=== PATIENT | female | born 1955 | race Caucasian/White ===

== ENCOUNTER → 2018-04-19 | Outpatient (CLI) | payer SELFPAY ==
[~2018-04-19] MED LIST: ALBU90OI6 INH; B-12500 MCG PO; CIPR500 PO; FERR325 PO; FURO20 PO; Hair, Skin & N1 EACH PO; IBUP600 PO; LEVSOD50; LEVSOD88 PO; PROCODE120 PO; SPIR25 PO; WATER PILL
== END | disposition home or self-care (01) ==
LOC: LAB SHORT 07:48 → LAB SRC 07:48
DX: E03.9 Hypothyroidism, unspecified (principal)
CPT/HCPCS: 84443

== ENCOUNTER 2020-05-25 09:47 | Emergency (ER) | payer MEDICARE ==
[~2020-05-25] VITALS: Ht 160 cm; Wt 113.4 kg
== END 2020-05-25 11:20 | disposition home or self-care (01) ==
LOC: ER 09:47
DX: M25.561 Pain in right knee (principal); Z91.010 Allergy to peanuts; Z79.899 Other long term (current) drug therapy
CPT/HCPCS: 73562-RT; 99283-25

== ENCOUNTER 2020-09-12 11:52 | Emergency (ER) | payer MEDICARE ==
[~2020-09-12] VITALS: Ht 160 cm; Wt 115.7 kg
[2020-09-12] MEDS ORDERED: ONDA4ODT MM (12:12)
== END 2020-09-12 12:45 | disposition home or self-care (01) ==
LOC: ER 11:52
DX: U07.1 COVID-19 (principal); Z91.010 Allergy to peanuts; Z79.899 Other long term (current) drug therapy
CPT/HCPCS: 99282

== ENCOUNTER 2022-12-24 10:06 | Observation (INO) | payer MEDICARE ==
[~2022-12-24] VITALS: Ht 165.1 cm; Wt 114.9 kg
[~2022-12-24 10:06] MED LIST changes: +ONDA4ODT MM
[2022-12-24 11:10] LABS: International Normalized Ratio 1.14; Prothrombin Time Results 11.9 Sec (9.7-11.5)
[2022-12-24 11:14] LABS: BASOPHILS ABSOLUTE AUTO 0.01 K/mm3 (0.00-0.23); BASOPHILS PERCENT AUTO 0 % (0-2); EOSINOPHILS ABSOLUTE AUTO 0.08 K/mm3 (0.00-0.68); EOSINOPHILS PERCENT AUTO 2 % (0-6); Hematocrit 35.9 % (33.0-51.0); Hemoglobin 11.7 g/dL (11.5-16.0); IMMATURE GRAN ABSOLUTE AUTO 0.02 K/mm3 (0.00-0.10); IMMATURE GRAN PERCENT AUTO 1 % (0-1); LYMPHOCYTES ABSOLUTE AUTO 0.64 K/mm3 (0.84-5.20); LYMPHOCYTES PERCENT AUTO 19 % (21-46); MONOCYTES ABSOLUTE AUTO 0.26 K/mm3 (0.16-1.47); MONOCYTES PERCENT AUTO 8 % (4-13); Mean Corpuscular HGB 27.1 pg (26.0-34.0); Mean Corpuscular HGB Conc 32.6 g/dL (31.5-36.5); Mean Corpuscular Volume 83 fL (80-100); Mean Platelet Volume 11.3 fL (9.1-12.4); NEUTROPHILS ABSOLUTE AUTO 2.35 K/mm3 (1.96-9.15); NEUTROPHILS PERCENT AUTO 70 % (41-73); Platelet Count 96 K/mm3 (150-400); RDW Coefficient Variation 16.2 % (11.7-14.2); RDW Standard Deviation 48.8 fL (35.1-46.3); Red Blood Cell Count 4.32 M/mm3 (3.80-5.20); White Blood Cell Count 3.36 K/mm3 (4.00-11.30)
[2022-12-24 11:47] LABS: Albumin, Blood 3.3 g/dL (3.4-5.0); Albumin/Globulin Ratio 0.8 (0.8-1.8); Bilirubin, Total 1.2 mg/dL (0.1-1.0); Bun/Creatinine Ratio 14.8 (12.0-20.0); Calcium, Blood 8.5 mg/dL (8.5-10.1); Creatinine, Blood 0.88 mg/dL (0.40-1.00); Globulin, Blood 4.1 g/dL (2.2-4.0); Potassium, Blood 3.7 mmol/L (3.5-5.5); Total Protein, Blood 7.4 g/dL (6.4-8.2)
[2022-12-24] MEDS ORDERED: LEVSOD100 PO (13:47)
[2022-12-24] MEDS ORDERED: POTA8 PO (13:48)
[2022-12-24] MEDS ORDERED: MAGNESIUM OXID500 MG PO (13:48)
[2022-12-24] MEDS ORDERED: TORS10 PO (13:50)
[2022-12-24 15:36] VITALS: BP 120/53
[2022-12-24 15:38] LABS: Hematocrit 34.7 % (33.0-51.0); Hemoglobin 11.1 g/dL (11.5-16.0)
[2022-12-24 16:05] LABS: Percent Saturation 12.5 % (15.0-50.0)
[2022-12-24 17:46] LABS: Alpha Feto Protein, Tumor Mkr 2.8 ng/mL (0.0-8.0); Cancer Antigen 19-9 40.5 U/mL (2.0-37.0)
--- NOTE | 2022-12-24 19:31 | NUR ---
SHIFT SUMMARY PT IS A&OX4 AND PLEASANT. NO C/O PAIN BUT DID VERBLIZE THAT HER ABD IS TENDER WITH PALPITAION. FAMILY AT BEDISE T/O DAY. PT DID HAVE ULTRASOUND AT BEDSIDE IN AFTERNOON. PT IS ABLE TO MAKE NEEDS KNOWN. VSS. BED IN LOWEST POSITION AND CALL LIGHT IN REACH.
[2022-12-24 20:14] VITALS: BP 126/63
[2022-12-25] VITALS (7 sets, daily range): BP systolic 116–139; BP diastolic 58–74
[2022-12-25 05:31] LABS: Hemoglobin 10.9 g/dL (11.5-16.0); Mean Corpuscular HGB 27.5 pg (26.0-34.0); Mean Corpuscular HGB Conc 32.1 g/dL (31.5-36.5); Mean Corpuscular Volume 86 fL (80-100); Mean Platelet Volume 10.8 fL (9.1-12.4); Platelet Count 84 K/mm3 (150-400); RDW Coefficient Variation 16.3 % (11.7-14.2); RDW Standard Deviation 50.8 fL (35.1-46.3); Red Blood Cell Count 3.96 M/mm3 (3.80-5.20); White Blood Cell Count 2.37 K/mm3 (4.00-11.30)
[2022-12-25 05:52] LABS: Bun/Creatinine Ratio 11.8 (12.0-20.0); Calcium, Blood 8.4 mg/dL (8.5-10.1); Creatinine, Blood 0.94 mg/dL (0.40-1.00); Potassium, Blood 3.7 mmol/L (3.5-5.5)
--- NOTE | 2022-12-25 05:59 | NUR ---
SHIFT SUMMARY 67 YR F ADMITTED ON 12/24/22 FOR [facility]. FULL CODE. NO ACUTE CHANGES THIS SHIFT. PT HAS SLEPT FOR MOST OF THIS SHIFT. SHE IS INDEPENDANT IN THE ROOM AND IS ABLE TO MAKE HER NEEDS KNOWN. PLAN IF FOR ENDOSCOPY THIS A.M. PT HAS BEEN NPO SINCE MIDNIGHT.
--- NOTE | 2022-12-25 13:20 | NUR ---
12/25/22 1320 Lb Garcia History, Chart, Medications and Allergies reviewed before start of procedure. MONITOR INTACT WITH CONTINUOUS PULSE OXIMETRY, CONTINUOUS END TITAL CO2, AND INTERMITTENT BLOOD PRESSURE. 3-LEAD EKG REVIEWED WITH PHYSICIAN PRIOR TO START OF PROCEDURE. O2 VIA N/C INTACT THROUGHOUT SEDATION/PROCEDURE. Bite Block Placed. LIDOCAINE TO BACK OF THROAT IN PRE OP BY DR FREEMAN.
[2022-12-25] MEDS ORDERED: ALDACTONE100 MG PO (15:31)
[2022-12-25] MEDS ORDERED: OMEP20ER PO (15:35)
--- NOTE | 2022-12-25 17:05 | NUR ---
SHIFT SUMMARY PATIENT ALERT AND INTERACTIVE. PATIENT HAD EGD TODAY. PATIENT WILL NEED TO REPEAT PROCEDURE BECAUSE OF FOOD STUFF FOUND IN HER STOMACH. PATIENT NPO SINCE LAST EVENING. PATIENT STATES SHE HAS ONLY HAD CLEAR LIQUIDS SINCE BEING HERE. NEW IV PLACED DURING EGD. PATIENT HAS HAD NO NAUSEA OR VOMITTING THIS SHIFT. PATIENT WAS HOPEFUL TO GO HOME AFTER PROCEDURE.
[2022-12-26] VITALS (15 sets, daily range): BP systolic 95–161; BP diastolic 46–98
[2022-12-26 05:41] LABS: Hematocrit 38.3 % (33.0-51.0); Hemoglobin 12.2 g/dL (11.5-16.0); Mean Corpuscular HGB 27.9 pg (26.0-34.0); Mean Corpuscular HGB Conc 31.9 g/dL (31.5-36.5); Mean Corpuscular Volume 87 fL (80-100); Mean Platelet Volume 10.4 fL (9.1-12.4); Platelet Count 88 K/mm3 (150-400); RDW Coefficient Variation 16.2 % (11.7-14.2); RDW Standard Deviation 52.1 fL (35.1-46.3); Red Blood Cell Count 4.38 M/mm3 (3.80-5.20); White Blood Cell Count 2.41 K/mm3 (4.00-11.30)
[2022-12-26 06:11] LABS: Albumin, Blood 3.2 g/dL (3.4-5.0); Albumin/Globulin Ratio 0.9 (0.8-1.8); Bun/Creatinine Ratio 10.4 (12.0-20.0); Calcium, Blood 8.6 mg/dL (8.5-10.1); Creatinine, Blood 0.96 mg/dL (0.40-1.00); Globulin, Blood 3.7 g/dL (2.2-4.0); Total Protein, Blood 6.9 g/dL (6.4-8.2)
--- NOTE | 2022-12-26 17:16 | NUR ---
PATIENT LEFT UNIT FOR HER EGD AT 1710 WITH SISTER MY.
--- NOTE | 2022-12-26 17:22 | NUR ---
PT TO DAY SURGERY FOR EGD IN OPERATING ROOM. PLAN OF CARE DISCUSSED.
--- NOTE | 2022-12-26 18:23 | NUR ---
12/26/221822 Lb Garcia PT TAKEN TO OR ON GURN. TRANSFERRED TO OR BED. MONITOR INTACT WITH CONTINUOUS PULSE OXIMETRY, CONTINUOUS END TITAL CO2, AND INTERMITTENT BLOOD PRESSURE. 3-LEAD EKG REVIEWED WITH PHYSICIAN PRIOR TO START OF PROCEDURE. Bite Block Placed. SEE DR MCCRAY'S RECORDS.
--- NOTE | 2022-12-26 19:46 | NUR ---
SHIFT SUMMARY PATIENT WITH SOME DIZZINESS DURING SHIFT SHE REPORTS SHE HAS THIS SOMETIMES AT HOME CHRONICALLY BUT STATES MORE THAN NORMAL THIS EVENING WHEN UP TO WALK [place] WITH WALKER. PATIENT WALKED 50 FEET THEN CAME BACK TO ROOM TO SIT. HEART WAS IN SINUS RYTHM IN THE 80S WITH EXERTION, 60S AT REST. NO OTHER SYMPTOMS AND DIZZINESS FADES WITH SITTING. LEFT MESSAGE FOR DR SOSA. NO NEW ORDERS. NO BLOOD IN STOOLS TODAY, ICE CHIPS AND WATER ONLY UNTIL NOON AND THEN NPO. PATIENT LEFT UNIT FOR EGD AT 1710. SHE IS A STANDBY ASSIST TO THE BATHROOM WITH WALKER. BED IN LOW POSITION, CALL LIGHT IN REACH. PATIENT CALLS APPROPRIATELY.
[2022-12-27 00:01] VITALS: BP 126/56
[2022-12-27 03:18] VITALS: BP 118/57
--- NOTE | 2022-12-27 05:28 | NUR ---
SHIFT SUMMARY NOC A/O X 4. PLEASANT AND COOPERATIVE WITH CARE. PT HAD EGD WITH GASTRIC DILATION AND FOOD EXTRACTION PERFORMED YESTERDAY. PT POST OP VSS SO FAR. PT ON O2 2L/NC PROPHYLACTIC MEASURE FROM BEING UNDER SEDATION FOR PROCEDURE. PT REPORTS FEELING SLIGHTLY BLOATED POST PROCEDURE DUE TO AIR BEING PLACED INTO STOMACH FOR PROCEDURE. PT HAS HAD ONE LOOSE BM POST OP SO FAR AND FLATULENCE. PT IS NO LONGER NPO AND IS ON FULL LIQUID DIET AND TOLERATING LIQUIDS WELL. PT ON TELE RUNNING SINUS RHYTHM @ 60 BPM. PT IS CURRENTLY RESTING WITH BED IN LOWEST POSITION, AND CALL LIGHT WITHIN REACH.
[2022-12-27 07:32] VITALS: BP 117/55
[2022-12-27 11:12] LABS: ACTIN (SMOOTH MUSCLE) ANTIBODY 8 Units (0-19); MITOCHONDRIAL (M2) ANTIBODY <20.0 Units (0.0-20.0)
[2022-12-27] MEDS ORDERED: Prilosec10 M1 PO (13:07)
--- NOTE | 2022-12-27 16:42 | NUR ---
pt discharged from the unit. iv removed. medications sent to [facility]. pt left unit via [place]. daughter to drive.
== END 2022-12-27 16:01 | disposition home or self-care (01) ==
LOC: ER 10:06 → MEDS 10:07 → ENPENDDIS 12-27 12:07 → MEDS 12-27 16:01
PROVIDERS: Internal Medicine Gastroenterology; Student in an Organized Health Care Education/Training Program; ADMIT Internal Medicine
PROC: 0D768ZZ Dilation of Stomach, Via Natural or Artificial Opening Endoscopic (ICD-10-PCS; principal; 2022-12-26 14:00)
DX: K28.9 Gastrojejunal ulcer, unspecified as acute or chronic, without hemorrhage or perforation (principal); T18.0XXA Foreign body in mouth, initial encounter; K75.81 Nonalcoholic steatohepatitis (NASH); E03.9 Hypothyroidism, unspecified; D69.6 Thrombocytopenia, unspecified; K74.60 Unspecified cirrhosis of liver; W44.F3XA Food entering into or through a natural orifice, initial encounter; Z98.84 Bariatric surgery status; Z87.891 Personal history of nicotine dependence
CPT/HCPCS: 36415; 76700; 80048; 80053; 82103; 82105; 82728; 83540; 83550; 83690; 85014; 85018; 85025; 85027; 85610; 85730; 86015; 86038; 86301; 86381; 86850; 86900; 86901; 93005; 93010; 94760; 96365; 96366; 96374; 96375; 96376; 99285-25; A9270; C1726; C9113; G0378; J0330; J0696; J1100; J2001; J2250; J2405; J2704; J3010; J7030; J7120

== ENCOUNTER 2023-02-20 12:12 | Day surgery (SDC) | payer MEDICARE ==
[~2023-02-20] VITALS: Ht 157.5 cm; Wt 111.3 kg
[~2023-02-20 12:12] MED LIST changes: +ALDACTONE100 MG PO; +LEVSOD100 PO; +MAGNESIUM OXID500 MG PO; +OMEP20ER PO; +POTA8 PO; +Prilosec10 M1 PO; +TORS10 PO
[2023-02-20] MEDS ORDERED: ALDACTONE100 MG (12:41)
[2023-02-20] MEDS ORDERED: TORSE20 (12:41)
[2023-02-20 15:01] VITALS: BP 128/68
--- NOTE | 2023-02-20 15:03 | NUR ---
02/20/23 1503 Hannah Little IV DC'D WNL, CATH INTACT. SITE WRAPPED IN [place]. PT TOLERATED IV DC WELL.
== END 2023-02-20 15:00 | disposition home or self-care (01) ==
LOC: ORSCSDS 12:12
PROVIDERS: Internal Medicine Gastroenterology
PROC: 0DJ08ZZ Inspection of Upper Intestinal Tract, Via Natural or Artificial Opening Endoscopic (ICD-10-PCS; principal; 2023-02-20 13:45)
DX: Z87.11 Personal history of peptic ulcer disease (principal); Z98.84 Bariatric surgery status; K74.60 Unspecified cirrhosis of liver; I85.10 Secondary esophageal varices without bleeding; K76.6 Portal hypertension; K31.89 Other diseases of stomach and duodenum; R06.02 Shortness of breath; I10 Essential (primary) hypertension; E03.9 Hypothyroidism, unspecified; E66.01 Morbid (severe) obesity due to excess calories; Z68.41 Body mass index [BMI] 40.0-44.9, adult; Z79.899 Other long term (current) drug therapy
CPT/HCPCS: J2704; J7120

== ENCOUNTER 2023-11-30 09:45 | Day surgery (SDC) | payer MEDICARE ==
[~2023-11-30] VITALS: Ht 160 cm; Wt 113.0 kg
[~2023-11-30 09:45] MED LIST changes: +ALDACTONE100 MG; +CARV3.125 PO; +Lactated Ringer's 1,000 ML IV ONE; +SYNTHROID88 MCG PO; +TORSE20
[2023-11-30] MEDS ORDERED: ALDACTONE25 MG PO (10:14)
[2023-11-30] MEDS ORDERED: Lactated Ringer's 1,000 ML IV ONE (10:24)
[2023-11-30] MEDS ORDERED: Lidocaine HCl 4% 5 ML SDA ONE (11:40)
[2023-11-30] MEDS ORDERED: propofoL 50 ML IV ONE (11:41)
[2023-11-30 12:43] VITALS: BP 134/81
== END 2023-11-30 12:35 | disposition home or self-care (01) ==
LOC: ORSCSDS 09:45
PROVIDERS: Internal Medicine Gastroenterology
PROC: 0DJ08ZZ Inspection of Upper Intestinal Tract, Via Natural or Artificial Opening Endoscopic (ICD-10-PCS; principal; 2023-11-30 11:15)
DX: K74.60 Unspecified cirrhosis of liver (principal); I85.10 Secondary esophageal varices without bleeding; Z87.11 Personal history of peptic ulcer disease; Z98.84 Bariatric surgery status; K75.81 Nonalcoholic steatohepatitis (NASH); E11.9 Type 2 diabetes mellitus without complications; G47.33 Obstructive sleep apnea (adult) (pediatric); E78.5 Hyperlipidemia, unspecified; E03.9 Hypothyroidism, unspecified; E66.9 Obesity, unspecified; Z68.41 Body mass index [BMI] 40.0-44.9, adult; Z87.891 Personal history of nicotine dependence; Z79.82 Long term (current) use of aspirin; Z79.899 Other long term (current) drug therapy
CPT/HCPCS: 82947; J2003; J2704; J7120